=== PATIENT | female | born 1940 | race Caucasian/White ===

== ENCOUNTER → 2019-06-10 13:40 | Outpatient (BNVA) | payer MEDICARE, SELFPAY | PROVIDERS: Family Provider Nurse Practitioner; PCP Nurse Practitioner; Visit Provider Nurse Practitioner Family | DX: N39.0 Urinary tract infection, site not specified (principal) | CPT/HCPCS: 81001 ==

== ENCOUNTER → 2019-12-30 13:57 | Outpatient (BNVA) | payer MEDICARE, SELFPAY | PROVIDERS: Family Provider Nurse Practitioner; PCP Nurse Practitioner; Visit Provider Nurse Practitioner | DX: I10 Essential (primary) hypertension (principal) | CPT/HCPCS: 80053; 80061; 84443 ==

== ENCOUNTER → 2020-02-26 12:54 | Outpatient (BNVA) | payer MEDICARE, SELFPAY | PROVIDERS: Family Provider Nurse Practitioner; PCP Nurse Practitioner; Visit Provider Urology | DX: N30.20 Other chronic cystitis without hematuria (principal) | CPT/HCPCS: 81001 ==

== ENCOUNTER 2020-05-14 10:00 | Outpatient (CLI) | payer MEDICARE, SELFPAY ==
[2020-05-14 10:44] LABS: Basophils % 0.6 %; Eosinophils # 0.1 10^3/uL (0.0-0.8); Eosinophils % 1.7 %; Hematocrit 43.6 % (37.0-47.0); Hemoglobin 14.3 g/dL (11.5-15.3); Lymphocytes # 1.6 10^3/uL (0.8-4.8); Lymphocytes % 30.1 %; Mean Corpuscular HGB Conc 32.8 g/dL (30.0-36.0); Mean Corpuscular Hemoglobin 30.7 pg (28.0-34.0); Mean Corpuscular Volume 93.6 fL (81-99); Monocytes # 0.5 10^3/uL (0.2-0.9); Monocytes % 9.8 %; Neutrophils # 3.12 10^3/uL (1.8-7.7); Neutrophils % 57.6 %; Nucleated Red Blood Cells % 0 %; Platelet Count 222 10^3/cmm (130-400); Red Blood Count 4.66 10^6/uL (4.1-5.3); Red Cell Distribution Width 13.2 % (12.1-15.1); White Blood Count 5.4 10^3/uL (4.0-10.0)
[2020-05-14 10:53] LABS: Alanine Aminotransferase 19 U/L (0-33); Albumin Level 4.2 g/dL (3.5-5.2); Alkaline Phosphatase 106 IU/L (35-105); Aspartate Amino Transferase 23 U/L (0-32); Blood Urea Nitrogen 13 mg/dL (8-23); Calcium 9.5 mg/dL (8.5-10.5); Carbon Dioxide 25 mmol/L (22-29); Chloride 103 mmol/L (98-107); Globulin 2.6 g/dL (1.3-4.6); Glucose 95 mg/dL (65-115); Osmolality Calculated 286 mOsm/kg (285-295); Sodium 138 mmol/L (136-145); Total Bilirubin 0.5 mg/dL (0.15-1.2); Total Protein 6.8 g/dL (6.6-8.7)
--- NOTE | 2020-05-15 08:32 | ONC FU_ITS ---
Dr. Arvizu Patient Follow-Up Note Patient: Corrine Johnson Unit #: [id number]: [id number] Dicatated By: Juan Manuel Arvizu M.D.Date of Visit:May 14, 2020 Onc Med Follow-up/Prog Note Chief Complaint: Breast cancer. 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 She underwent right modified radical mastectomy in November of 2005. Pathology showed a grade 3 invasive adenocarcinoma estimated to be greater than 5 cm. There was infiltration into the dermal lymphatics and there was involvement in 22 of 31 axillary lymph nodes. She was given adjuvant chemotherapy with 6 cycles of TAC, which she completed in April of 2006. She was then given prophylactic chest wall radiation. She completed radiation in June 2006 to a total dose of 6000 cGy. She then continued on observation/expectant management. 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 Her other medical illnesses include hypertension and dyslipidemia. She has been followed by Dr. Babb for cardiac arrhythmia, and she is on anticoagulation with apixaban. She had evidence of osteoporosis on a bone density study, and she also has degenerative arthritis. She underwent right total knee arthroplasty in February 2017. She is a nonsmoker. She is seen for a follow-up visit. She has been feeling pretty good generally, though she does complain that she is tired. She has pretty good activity tolerance once she can get going. Her ECOG score is 1. She has good appetite. She does not have fever or night sweats. She has a little bit of hot flashes, but they do not last long. She has some shortness of breath, but her breathing is not bad as long she uses her inhaler in the morning. She does not complain of cough and she has not been having chest pain. She has no GI complaints. She currently is having symptoms of urinary tract infection, but she does have antibiotic available through Dr. Tang. She says her joints have been hurting more, especially her fingers and ankles. She has been having quite a few headaches, mainly in the morning. She has no focal neurologic symptoms. Medications: Acetaminophen 2 Tablet (of 500 mg) Oral PRN, All Day Allergy 10 mg (of 10 mg) Tablet Oral PRN, Cranberry 4,200 mg (of 4200 mg) Capsule Oral daily, Doxycycline Hyclate 100 mg (of 100 mg) Tablet Oral b.i.d. PRN, Eliquis 1 Tablet (of 5 mg) Oral b.i.d., Hydrocodone-Acetaminophen Tablet Oral PRN, Klor-Con 10 1 (10 meq) Tablet, controlled release Oral daily, Valsartan 1 Tablet Oral daily Allergies: Macrobid Review of Systems: Constitutional - She has been feeling pretty good generally. She still feels tired, but she has reasonably good activity tolerance when she gets going. Her appetite is good. She has not had fever or night sweats. She has just a little bit of hot flashes, which do not last long. ECOG score is 1, ENMT - She has quite a bit of sinus drainage. No mouth sores. No sore throat or difficulty swallowing, Hematologic/Lymphatic - She has easy bruising, Respiratory - She has some shortness of breath, and she does use her inhaler every morning. Her breathing, though, is not bad. No cough. No pleuritic pain or hemoptysis, Cardiovascular - No angina pain. No palpitations, Gastrointestinal - No nausea or vomiting. No heartburn or acid reflux. No diarrhea or constipation. No blood in the stool or black stools, Genitourinary (F) - She currently is having symptoms of urinary tract infection, but she does have antibiotic available through Dr. Tang, Musculoskeletal - She says her joints have been hurting more, especially her fingers and ankles, Integumentary - No skin rash, Neurologic - She has had quite a few headaches, mainly in the mornings. No dizziness. No numbness or tingling. No other focal neurologic symptoms, Psychiatric - No anxiety or depression. No insomnia. Vital Signs: Performed on May 14, 2020 12:55 Height - 67.00 in Weight - 179.0 lbs (HIGH) BSA - 1.93 sq.m BMI - 28.04 Temperature - 98.1 F (LOW) Pulse - 65 /min Respiration - 16 /min BP - 199/105 mm(hg) (HIGH) O2 Sat - 95 % (LOW) Pain - 0 Physical Examination: Constitutional - She looks pretty good generally, Eyes - Sclerae nonicteric. Conjunctivae clear, ENMT - No lesions noted in the oral cavity, Hematologic/Lymphatic - No cervical or clavicular adenopathy, Respiratory - Lungs are clear with good air movement bilaterally, Cardiovascular - Heart rhythm is regular. There is no murmur, gallop, or rub noted, Breasts - There are no lesions noted in the right chest wall. The left breast shows no mass. There is no axillary adenopathy, Abdomen - Soft. Liver and spleen are not enlarged. There is no abdominal mass or ascites noted and there is no inguinal adenopathy, Extremities - No edema, Neurologic - No focal neurologic deficits noted. Lab/Imaging: Test performed on May 14, 2020 10:20 Sodium 138 mmol/L Potassium 4.0 mmol/L Chloride 103 mmol/L CO2 25 mmol/L Anion Gap 14.0 BUN 13 mg/dL Creatinine 0.7 mg/dL Cr Clearance (Est) 86.27 mL/min Glucose 95 mg/dL Osmolality - Calculated 286 mOsm/kg Calcium 9.5 mg/dL Protein, Total 6.8 g/dL Albumin 4.2 g/dL Globulin 2.6 g/dL Bilirubin, Total 0.5 mg/dL ALT (SGPT) 19 U/L AST (SGOT) 23 U/L Alkaline Phosphatase 106 IU/L WBC 5.4 10 3/uL RBC 4.66 10 6/uL HGB 14.3 g/dL HCT 43.6 % MCV 93.6 fL MCH 30.7 pg MCHC 32.8 g/dL RDW 13.2 % Platelet Count 222 10 3/cmm MPV 10.0 fL Neutrophils 3.12 10 3/uL Lymphocytes 1.6 10 3/uL Monocytes 0.5 10 3/uL Eosinophils 0.1 10 3/uL Basophils 0.0 10 3/uL Neutrophil % 57.6 % Lymphocyte % 30.1 % Monocyte % 9.8 % Eosinophil % 1.7 % Basophils % 0.6 % NRBC % 0 % Impression: 1. 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 2. She underwent right modified radical mastectomy in November 2005. 3. She was given adjuvant chemotherapy with 6 cycles of TAC, completed in April 2006. 4. She was then given prophylactic chest wall radiation, completed in June 2006. She has since then remained on observation/expectant management. Her other medical illnesses include: 5. Hypertension. 6. Dyslipidemia. 7. Osteopenia. 8. Degenerative arthritis. She underwent successful right total knee arthroplasty in February 2017. She had a good recovery. During subsequent follow-up she had developed some cardiac arrhythmia, for which she has continued follow-up with Dr. Babb. She has remained on anticoagulation with apixaban. During follow-up she has had ongoing complaints of fatigue and she does have chronic pain, which appears to be due to a combination of degenerative joint disease and residual neuropathy. It has been managed adequately with hydrocodone/APAP, which she has used sparingly. Overall, her clinical status appears stable. Thus far there has been no evidence of recurrence of the breast cancer. Plan: She remains on observation/expectant management for the breast cancer. She will continue hydrocodone/APAP as needed for her chronic pain. She will be scheduled for her yearly diagnostic mammograms, which are due at the end of this month. She will be scheduled for a follow-up visit in 1 year. Signed By: Juan Manuel Arvizu M.D. <<Signature on File>>
== END 2020-05-14 10:01 | disposition home or self-care (01) ==
LOC: ONCMED 10:02
PROVIDERS: PCP Nurse Practitioner; Visit Provider Internal Medicine Medical Oncology
DX: Z08 Encounter for follow-up examination after completed treatment for malignant neoplasm (principal); Z85.3 Personal history of malignant neoplasm of breast; G89.29 Other chronic pain; M19.90 Unspecified osteoarthritis, unspecified site; G62.9 Polyneuropathy, unspecified; I49.9 Cardiac arrhythmia, unspecified; I10 Essential (primary) hypertension; M85.80 Other specified disorders of bone density and structure, unspecified site; Z79.891 Long term (current) use of opiate analgesic; Z79.01 Long term (current) use of anticoagulants; Z92.3 Personal history of irradiation; Z90.11 Acquired absence of right breast and nipple
CPT/HCPCS: 36415; 80053; 85025; 99214

== ENCOUNTER 2020-06-01 09:02 | Outpatient (CLI) | payer MEDICARE, SELFPAY ==
--- NOTE | 2020-06-01 09:07 | MM_ITS ---
WS: [id number] Exam: [id number] Date/Time of Exam: 06/01/2020 9:10 AM Reason For Exam: HX OF BREAST CA;RT MASTECTOMY VIEWS: MLO and CC views left breast only. Comparison made with prior exam of 05/04/2017. Findings: There was no sign of mass, architectural distortion or suspicious calcification . Scattered fibrogla ndular densities MM/[id number] Impression: BI-RADS: 2-Benign FOLLOW-UP: 1 Year Follow-up This mammogram was also analyzed by the Computer Aided Detection System [employer] [facility].
== END 2020-06-01 09:03 | disposition home or self-care (01) ==
LOC: ONCMED 09:04
PROVIDERS: PCP Nurse Practitioner; Visit Provider Internal Medicine Medical Oncology
DX: Z85.3 Personal history of malignant neoplasm of breast (principal)
CPT/HCPCS: 77065

== ENCOUNTER → 2020-12-28 10:23 | Outpatient (BNVA) | payer MEDICARE, SELFPAY | PROVIDERS: PCP Nurse Practitioner; Visit Provider Nurse Practitioner Family | DX: Z20.822 Contact with and (suspected) exposure to COVID-19 (principal) | CPT/HCPCS: 87635 ==

== ENCOUNTER 2021-06-08 10:52 | Outpatient (CLI) | payer MEDICARE, SELFPAY ==
[2021-06-08 11:41] LABS: Basophils % 0.6 %; Eosinophils # 0.3 10^3/uL (0.0-0.8); Eosinophils % 6.4 %; Hemoglobin 13.9 g/dL (11.5-15.3); Lymphocytes # 1.6 10^3/uL (0.8-4.8); Lymphocytes % 31.9 %; Mean Corpuscular HGB Conc 32.3 g/dL (30.0-36.0); Mean Corpuscular Hemoglobin 30.1 pg (28.0-34.0); Mean Corpuscular Volume 93.1 fl (81-99); Mean Platelet Volume 9.9 fL (7.4-10.4); Monocytes # 0.6 10^3/uL (0.2-0.9); Monocytes % 11.8 %; Neutrophils # 2.46 10^3/uL (1.8-7.7); Neutrophils % 48.9 %; Nucleated Red Blood Cells % 0 %; Platelet Count 226 10^3/cmm (130-400); Red Blood Count 4.62 10^6/uL (4.1-5.3); Red Cell Distribution Width 13.2 % (12.1-15.1)
--- NOTE | 2021-06-08 11:48 | MM_ITS ---
WS: [id number] DIAGNOSTIC LEFT DIGITAL MAMMOGRAM WITH CAD HISTORY: HX OF BREAST Ca; rt mastectomy COMPARISON: 05/24/2020, 05/31/2019 and 05/07/2018 Technique: CC, MLO and ML views. Breast composition: There are scattered areas of fibroglandular density. Extensive vascular calcific ations and scattered benign-appearing calcifications in the LEFT breast. Benign lymph nodes in the up per outer quadrant. No distortion. MM/[id number] IMPRESSION: BI-RADS: 2-Benign FOLLOW UP: 1 Year Follow-up
[2021-06-08 12:04] LABS: Alanine Aminotransferase 18 U/L (0-33); Albumin Level 4.2 g/dL (3.5-5.2); Alkaline Phosphatase 103 IU/L (35-105); Aspartate Amino Transferase 28 U/L (0-32); Blood Urea Nitrogen 12 mg/dL (8-23); Calcium 8.8 mg/dL (8.5-10.5); Carbon Dioxide 28 mmol/L (22-29); Chloride 103 mmol/L (98-107); Globulin 2.8 g/dL (1.3-4.6); Glucose 87 mg/dL (65-115); Osmolality Calculated 293 mOsm/kg (285-295); Sodium 142 mmol/L (136-145); Total Bilirubin 0.4 mg/dL (0.15-1.2)
--- NOTE | 2021-06-12 11:15 | ONC FU_ITS ---
Dr. Arvizu Patient Follow-Up Note Patient: Corrine Johnson Unit #: [id number]: [id number] Dicatated By: Juan Manuel Arvizu M.D.Date of Visit:Jun 08, 2021 Onc Med Follow-up/Prog Note Chief Complaint: Breast cancer. 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 She underwent right modified radical mastectomy in November of 2005. Pathology showed a grade 3 invasive adenocarcinoma estimated to be greater than 5 cm. There was infiltration into the dermal lymphatics and there was involvement in 22 of 31 axillary lymph nodes. She was given adjuvant chemotherapy with 6 cycles of TAC, which she completed in April of 2006. She was then given prophylactic chest wall radiation. She completed radiation in June 2006 to a total dose of 6000 cGy. She then continued on observation/expectant management. 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 Her other medical illnesses include hypertension and dyslipidemia. She has been followed by Dr. Babb for cardiac arrhythmia, and she is on anticoagulation with apixaban. She had evidence of osteoporosis on a bone density study, and she also has degenerative arthritis. She underwent right total knee arthroplasty in February 2017. She is a nonsmoker. She is seen for a follow-up visit. She has been feeling good generally, though she did have COVID-19 virus infection in December. Her energy is not too bad now. She has normal activity. ECOG score is 0. Her appetite is good. She has not recently had any fever. She still has hot flashes off and on. She still has some cough and she is sometimes short of breath. She does not complain of chest pain. She has no GI complaints other than occasional diarrhea. Bladder function had been really good, but she then required treatment for urinary tract infection following the COVID infection. She has some pain in her right hand and in both ankles. Lately she has had a lot of headaches. She occasionally has dizziness. She has no focal neurologic symptoms. Medications: Acetaminophen 2 Tablet (of 500 mg) Oral PRN, All Day Allergy 10 mg (of 10 mg) Tablet Oral PRN, Cranberry 4,200 mg (of 4200 mg) Capsule Oral daily, Doxycycline Hyclate 100 mg (of 100 mg) Tablet Oral b.i.d. PRN, Eliquis 1 Tablet (of 5 mg) Oral b.i.d., Hydrocodone-Acetaminophen Tablet Oral PRN, Klor-Con 10 1 (10 meq) Tablet, controlled release Oral daily, Valsartan 1 Tablet Oral daily Allergies: Macrobid Vital Signs: Performed on Jun 08, 2021 12:32 Height - 67.00 in Weight - 165 lbs (LOW) BSA - 1.86 sq.m BMI - 25.84 Temperature - 97.6 F (LOW) Pulse - 67 /min Respiration - 19 /min BP - 182/96 mm(hg) (HIGH) O2 Sat - 94 % (LOW) Pain - 0 Physical Examination: Constitutional - She looks pretty good generally, Eyes - Sclerae nonicteric. Conjunctivae clear, ENMT - No lesions noted in the oral cavity, Hematologic/Lymphatic - No cervical or clavicular adenopathy, Respiratory - Lungs are clear with good air movement bilaterally, Cardiovascular - Heart rhythm is regular. There is no murmur, gallop, or rub noted, Breasts - There are no lesions noted in the right chest wall. The left breast shows no mass. There is no axillary adenopathy, Abdomen - Soft. Liver and spleen are not enlarged. There is no abdominal mass or ascites noted and there is no inguinal adenopathy, Extremities - No edema. Pedal pulses are palpable bilaterally, Neurologic - No focal neurologic deficits noted. Lab/Imaging: Test performed on Jun 08, 2021 11:30 Sodium 142 mmol/L Potassium 4.0 mmol/L Chloride 103 mmol/L CO2 28 mmol/L Anion Gap 15.0 BUN 12 mg/dL Creatinine 0.7 mg/dL Cr Clearance (Est) 78.26 mL/min Glucose 87 mg/dL Osmolality - Calculated 293 mOsm/kg Calcium 8.8 mg/dL Protein, Total 7.0 g/dL Albumin 4.2 g/dL Globulin 2.8 g/dL Bilirubin, Total 0.4 mg/dL ALT (SGPT) 18 U/L AST (SGOT) 28 U/L Alkaline Phosphatase 103 IU/L WBC 5.0 10 3/uL RBC 4.62 10 6/uL HGB 13.9 g/dL HCT 43.0 % MCV 93.1 fl MCH 30.1 pg MCHC 32.3 g/dL RDW 13.2 % Platelet Count 226 10 3/cmm MPV 9.9 fL Neutrophils 2.46 10 3/uL Lymphocytes 1.6 10 3/uL Monocytes 0.6 10 3/uL Eosinophils 0.3 10 3/uL Basophils 0.0 10 3/uL Neutrophil % 48.9 % Lymphocyte % 31.9 % Monocyte % 11.8 % Eosinophil % 6.4 % Basophils % 0.6 % NRBC % 0 % Problem List: 1. Grade 3 infiltrating adenocarcinoma of the right breast, stage IIIC (T3, pN3, M0), ER/NV negative and HER-2/betsy negative. 2. Hypertension. 3. Dyslipidemia. 4. Osteopenia. 5. Degenerative arthritis. 6. Cardiac arrhythmia. Problems Addressed with this Encounter and Plan: 1. 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 She underwent right modified radical mastectomy in November 2005. She was given adjuvant chemotherapy with 6 cycles of TAC, completed in April 2006. She was then given prophylactic chest wall radiation, completed in June 2006. She was then followed on observation/expectant management. During follow-up she has had ongoing complaints of fatigue and she does have chronic pain, which appears to be due to a combination of degenerative joint disease and residual neuropathy. It has been managed adequately with hydrocodone/APAP, which she has used sparingly. Overall, her clinical status appears stable. Thus far there has been no evidence of recurrence of the breast cancer. She remains on expectant management for the breast cancer. She will continue hydrocodone/APAP as needed for her chronic pain. She will be scheduled for a follow-up visit in 1 year. 2. She has a cardiac arrhythmia for which she has been maintained on anticoagulation. She continues apixiban 5 mg bid. Signed By: Juan Manuel Arvizu M.D. <<Signature on File>>
== END 2021-06-08 10:53 | disposition home or self-care (01) ==
PROVIDERS: PCP Nurse Practitioner; Visit Provider Internal Medicine Medical Oncology
DX: Z85.3 Personal history of malignant neoplasm of breast (principal); I10 Essential (primary) hypertension; E78.5 Hyperlipidemia, unspecified; I49.9 Cardiac arrhythmia, unspecified; Z79.899 Other long term (current) drug therapy; Z79.01 Long term (current) use of anticoagulants; Z86.16 Personal history of COVID-19
CPT/HCPCS: 36415; 77065; 80053; 85025; 99214

== ENCOUNTER → 2021-08-25 10:48 | Outpatient (BNVA) | payer MEDICARE, SELFPAY | PROVIDERS: PCP Nurse Practitioner; Visit Provider Nurse Practitioner | DX: I10 Essential (primary) hypertension (principal); E55.9 Vitamin D deficiency, unspecified; I50.9 Heart failure, unspecified; N95.0 Postmenopausal bleeding; I48.91 Unspecified atrial fibrillation | CPT/HCPCS: 80053; 80061; 81000; 82306; 82607; 84443 ==

== ENCOUNTER 2021-09-06 07:54 | Outpatient (CLI) | payer MEDICARE, SELFPAY ==
--- NOTE | 2021-09-06 08:30 | US_ITS ---
WS: [id number] ULTRASOUND PELVIS TECHNIQUE: Transabdominal and transvaginal. ULTRASOUND PELVIS TECHNIQUE: Transabdominal. CLINICAL INFORMATION: N95.0 - Postmenopausal bleeding LMP: Menopause : No. COMPARISON: None. FINDINGS: Uterus Orientation: Anteverted. Size: 5.1 cm x 2.7 cm x 1.7 cm. Masses: None. Cervix: Mild Thickening Endometrium: Thickened and heterogeneous Endometrium thickness: 6.5 mm. Adnexa: Neither ovary is visualized due to small bowel. Free fluid: None. Other findings: None. US/US pelvic with transvaginal IMPRESSION: 1. Thickened heterogeneous endometrium measuring 6.5 mm abnormal in a postmeno pausal patient with hypoechoic cystic change. Recommend further evaluation with hysteroscopy to assess for neoplasia/hyperplasia. 2. Neither ovary is visualized due to small bowel. 3. No free fluid in the cul-de-sac.
== END 2021-09-06 07:55 | disposition home or self-care (01) ==
LOC: RAD 07:56
PROVIDERS: PCP Nurse Practitioner; Visit Provider Nurse Practitioner
DX: N95.0 Postmenopausal bleeding (principal); R93.89 Abnormal findings on diagnostic imaging of other specified body structures
CPT/HCPCS: 76830; 76856

== ENCOUNTER 2021-10-26 06:48 | Day surgery (SDC) | payer MEDICARE, SELFPAY ==
[2021-10-25 13:47] VITALS: BMI 24.7
[2021-10-26 07:16] VITALS: BP 154/93; PULSE 73; RESP 18; TEMP 36.1; O2SAT 93
[2021-10-26] MEDS: sodium chloride 0.9% 1,000 ML 30 ML IV (07:32)
[2021-10-26] MEDS: ketorolac 30 mg/mL INJ IVP (07:38)
--- NOTE | 2021-10-26 07:42 | ANES.PREANE2 ---
Pre-Anesthetic Assessment Height/Weight: Height 1.7 m Weight 71.668 kg Temp Pulse Resp BP Pulse Ox 97 F L 73 18 154/93 93 10/26/21 07:16 10/26/21 07:16 10/26/21 07:16 10/26/21 07:16 10/26/21 07:16 Preop Diagnosis: pmb Operation Date: 10/26/21 08:10 Proposed Procedures p Hysteroscopy dilation and curettage w/ Myosure 21345/[id number]/70009/n95.0(Not Applicable) - Promise Ware MD s Dilation And Curettage (D&C)(Not Applicable) - Promise Ware MD Familial anesthetic complications: None Was Beta Simran taken within 24 hours: Yes Was Clonidine taken within 24 hours: N/A Last intake: Intake Last Liquid Date 10/25/21 Last Liquid Time 19:00 Last Solid Date 10/25/21 Last Solid Time 19:00 Social No alcohol and No tobacco Exam alert, oriented x 3, clear to auscultation bilaterally and regular rate & rhythm Airway Mallampati: Class II Dentition: false Pulmonary None reported CV/HEM Atrial Fibrillation, Congestive Heart Failure (EF 40%), Deep Vein Thrombosis and Hypertension Mod pulm HTN, mod to severe MR Patient denies recent chest pains or SOB None reported Hepatic None reported GI None reported Metabolic None reported Musc/skel None reported Neuropsych None reported Anesthetic Plan ASA status: 3 Anesthesia: General Risk of > 500 ml blood loss (7ml/kg in children): No Medications/Allergies Home Medications Medication Instructions Recorded Confirmed Last Taken Type Lactobacills gasseri-Bifidobac 1 cap PO DAILY 06/10/19 10/26/21 10/25/21 History bifidum,longum 1.5 billion cell capsule (Compositence) cetirizine 10 mg capsule (All Day 10 mg PO DAILY 06/10/19 10/26/21 10/24/21 History Allergy (cetirizine)) cranberry jjez-N-yuzmtldi coag 250 1 tab PO DAILY 06/10/19 10/26/21 Unknown History mg-30 mg-50 million cell tablet (Azo Cranberry Plus Probiotic) vitamin B complex (B 1 tab PO ONCE 06/10/19 10/26/21 10/25/21 History Complex-Vitamin B12) albuterol sulfate 90 mcg/actuation 2 puff INHALATION Q6H PRN 10/01/19 10/26/21 10/12/21 History aerosol inhaler (ProAir HFA) aspirin 325 mg tablet 325 mg PO DAILY PRN 10/01/19 10/26/21 10/20/21 History magnesium 200 mg tablet 200 mg PO DAILY tab 10/01/19 10/26/21 10/25/21 History metoprolol succinate 25 mg 25 mg PO DAILY #30 tab 08/25/21 10/26/21 10/25/21 Rx tablet,extended release 24 hr potassium chloride 10 mEq 10 meq PO DAILY #30 cap 08/25/21 10/26/21 10/25/21 Rx capsule,extended release cholecalciferol (vitamin D3) 125 125 mcg PO DAILY #30 cap 09/07/21 10/26/21 10/24/21 Rx mcg (5,000 unit) capsule amlodipine 2.5 mg tablet (Norvasc) 2.5 mg PO DAILY #30 tab 09/21/21 10/26/21 10/26/21 06:00 Rx spironolactone 25 mg tablet 25 mg PO DAILY #30 tab 09/21/21 10/26/21 10/25/21 Rx apixaban 5 mg tablet (Eliquis) 5 mg PO BID #60 tab 09/30/21 10/26/21 10/25/21 Rx valsartan 320 mg tablet 320 mg PO DAILY #30 tab 09/30/21 10/26/21 10/25/21 Rx doxycycline hyclate 50 mg capsule 50 mg PO DAILY 10/20/21 10/26/21 10/25/21 History misoprostol 200 mcg tablet 600 mcg PO Q6H #12 tab 10/20/21 10/26/21 10/25/21 Rx (Cytotec) Allergies Allergy/AdvReac Type Severity Reaction Status Date / Time nitrofurantoin Allergy hives Verified 10/26/21 07:08 [From Macrobid] Current Medications Generic Name Dose Route Start Last Admin Trade Name Freq PRN Reason Stop Dose Admin Sodium Chloride 1,000 mls @ 30 mls/hr 10/26/21 07:15 10/26/21 07:32 Sodium Chloride 0.9% IV 10/27/21 07:14 30 mls/hr .Q24H RASHAD Administration PFSH Anesthesia Medical History Atrial fibrillation BMI 28.0-28.9,adult CHF (congestive heart failure) Chronic cystitis History of breast cancer History of DVT (deep vein thrombosis) HTN (hypertension) IBS (irritable bowel syndrome) Recurrent UTI Surgical History S/P cataract extraction S/P knee replacement Bilateral S/P lumpectomy of breast S/P mastectomy Right S/P rotator cuff repair Bilateral Family History Father , 62 Cancer CAD (coronary artery disease) Hypertension Mother , 86 CAD (coronary artery disease) Stroke Hypertension Heart disease Sister Cancer Heart disease Brother Heart disease Denies family history of Colon cancer Ovarian cancer Diabetes Hyperlipidemia Breast cancer Bleeding disorder Uterine cancer Thyroid disease Social History Smoking and tobacco status: never smoked Second hand smoke exposure: No Smoking risk assessment/counseling performed?: No Alcohol intake: never Desire information about alcohol rehabilitation?: No Counseling given: No Desire information about substance/drug rehabilitation?: No Counseling given: No Adopted: No Caregiver/support person: No Lives independently: No Household members: spouse Housing: House Marital status: service: No Current occupational status: retired History of recent travel: No Current gender identity: Female Data Anesthesia Cardiac Studies: No Data to Display
--- NOTE | 2021-10-26 08:18 | W.PM.OPSUD ---
Surgery/Procedure H&P Update DATE OF PROCEDURE: October 26, 2021 DATE H&P PERFORMED: 10/20/21 H&P UPDATE INFORMATION: I have reviewed H&P completed within last 30 days, I have examined patient prior to procedure and No changes to prior documentation PREOP DIAGNOSIS: pmb PLANNED PROCEDURE: Operation Date: 10/26/21 08:10 Proposed Procedures p Hysteroscopy dilation and curettage w/ Myosure [id number]/37784/n95.0(Not Applicable) - Promise Ware MD s Dilation And Curettage (D&C)(Not Applicable) - Promise Ware MD Related Problem List Diagnoses (1) Postmenopausal bleeding:
--- NOTE | 2021-10-26 09:12 | PM.OP ---
Operative Report Date of procedure: October 26, 2021 Pre-op diagnosis: Preop Diagnosis pmb Post-op diagnosis: same Post-op findings: 6 week sized uterus, endometrial polyp Procedure done: hysteroscopy, dilation and curettage with myosure Specimens removed/disposition: endometrial curettings and endometrial polyp to pathology Surgeon: Promise Ware Anesthesia: General Estimated blood loss (mL): 2 IV fluids (mL): 600 Complications: none Findings: 6 week sized uterus with one endometrial polyp Condition: stable Disposition: PACU Procedure: The patient was taken to the operating room where monitored anesthesia was administered and to be adequate. She was prepped and draped in the normal sterile fashion in the dorsal lithotomy position in [facility]. A weighted speculum was placed into the vagina and the anterior lip of the cervix grasped with a single-tooth tenaculum. The uterus was sounded to 6 cm. The cervix was dilated to 16 [place]. The hysteroscope was advanced into the endometrial cavity. There was an endometrial polyp visualized. The MyoSure device was activated and the tissue was removed. Pictures were taken pre and post procedure. All instruments were removed. The patient tolerated the procedure well. Sponge lap and needle counts were correct x3. She was taken to the recovery room in stable condition.
[2021-10-26 09:17] VITALS: BP 138/98; PULSE 75; RESP 17; TEMP 37.2; O2SAT 95
--- NOTE | 2021-10-26 09:20 | P.DS_ITS ---
Discharge Providers Date of Admission: 10/26/21 Date of Discharge: October 26, 2021 Attending Provider at Admission: promise Ware md Attending Provider at Discharge: Promise Ware MD Primary Care Provider: TANGELA Marcus Diagnoses at Discharge Discharge Diagnosis (1) Postmenopausal bleeding: Status: Acute Hospital Course Hospital Course The patient was admitted for surgery. She did well postoperatively and was ready for discharge. Discharge Data Studies Completed and Pending Pending at discharge Category Date Time Status ES surgery / GI images Routine Exams 10/26/21 08:18 Taken Pathology: Surgical [PTH] Routine Pth 10/26/21 09:11 Ordered Vitals Last Vital Signs Temp 99.0 F 10/26/21 09:17 Pulse 75 10/26/21 09:17 Resp 17 10/26/21 09:17 BP 138/98 10/26/21 09:17 Pulse Ox 95 10/26/21 09:17 Discharge Plan Discharge Patient Disposition: Home Condition: Stable Prescriptions: Continued Azo Cranberry Plus Probiotic 250-30-50 [id number]-[id number] tablet 1 tab PO DAILY 0RF vitamin B complex [B Complex-Vitamin B12] Tablet 1 tab PO ONCE 0RF 24/7 Card 1.5 billion cell capsule 1 cap PO DAILY 0RF All Day Allergy (cetirizine) 10 mg capsule 10 mg PO DAILY 0RF magnesium 200 mg tablet 200 mg PO DAILY 0RF aspirin 325 mg tablet 325 mg PO DAILY PRN (Reason: pain) 0RF albuterol sulfate [ProAir HFA] 90 mcg/actuation HFA aerosol inhaler 2 puff INHALATION Q6H PRN (Reason: Allergic Reaction) 0RF metoprolol succinate 25 mg tablet extended release 24 hr 25 mg PO DAILY Qty: 30 5RF potassium chloride 10 mEq capsule, extended release 10 meq PO DAILY Qty: 30 5RF doxycycline hyclate 50 mg capsule 50 mg PO DAILY 0RF misoprostol [Cytotec] 200 mcg tablet 600 mcg PO Q6H Qty: 12 0RF Rx Instructions: start first three pills at noon on 10/25 and take every 6 hours. Last three pills at 6 am 10/26 cholecalciferol (vitamin D3) 125 mcg (5,000 unit) capsule 125 mcg PO DAILY Qty: 30 2RF Rx Instructions: dose increase amlodipine [Norvasc] 2.5 mg tablet 2.5 mg PO DAILY Qty: 30 5RF spironolactone 25 mg tablet 25 mg PO DAILY Qty: 30 5RF Eliquis 5 mg tablet 5 mg PO BID Qty: 60 5RF valsartan 320 mg tablet 320 mg PO DAILY Qty: 30 5RF Discharge Orders: Discharge Order (Routine); Ordered 10/26/21 Ordered By: Promise Ware Discharge Attestations Time Spent in Discharge Care*: less than 30 min Quality Metrics Clinical Quality Measures [ No reported AMI, CVA or VTE this stay] Coding Level of Care Code Acute Chg FW DC note Diagnoses Postmenopausal bleeding N95.0
[2021-10-26 09:22] VITALS: BP 139/78; PULSE 73; RESP 16; O2SAT 95
--- NOTE | 2021-10-26 09:23 | P.PCN_ITS ---
PACU note Narrative: VSS, Good respiratory effort, report to SPECIAL ORDER JEWELER Exam: awake
--- NOTE | 2021-10-26 09:23 | PM.PACU ---
PACU note Narrative: VSS, Good respiratory effort, report to TOOL GRINDER Exam: awake
[2021-10-26 09:26] VITALS: BP 137/77; PULSE 73; RESP 16; TEMP 36.8; O2SAT 96
[2021-10-26 09:30] VITALS: BP 141/68; PULSE 72; RESP 16; TEMP 36.5; O2SAT 94
[2021-10-26 09:41] VITALS: BP 136/62; PULSE 64; RESP 18; TEMP 36.6; O2SAT 95
--- NOTE | 2021-10-26 13:47 | ANE.PACU2 ---
Inpatient post-anesthesia follow up: Airway intact: Yes Vital signs: Temperature 97.8 F Pulse Rate 64 Respiratory Rate 18 Blood Pressure 136/62 Pulse Oximetry 95 Oxygen Delivery Me thod Room Air Oxygen Flow Rate Fraction of Inspir ed Oxygen Hydration adequate: Yes Nausea and vomiting: No Pain level: 1 Mental status: Baseline
== END 2021-10-26 10:13 | disposition home or self-care (01) ==
PROVIDERS: PCP Nurse Practitioner; Visit Provider Obstetrics & Gynecology
PROC: 0UDB8ZZ Extraction of Endometrium, Via Natural or Artificial Opening Endoscopic (ICD-10-PCS; CPT 58558; principal; 2021-10-26 08:00)
PROC: (CPT 58120; 2021-10-26 08:00)
DX: N95.0 Postmenopausal bleeding (principal); N84.0 Polyp of corpus uteri; I48.91 Unspecified atrial fibrillation; I11.0 Hypertensive heart disease with heart failure; I50.9 Heart failure, unspecified; Z86.718 Personal history of other venous thrombosis and embolism; Z85.3 Personal history of malignant neoplasm of breast
CPT/HCPCS: 58558; 88305; J0330; J0690; J1100; J1885; J2405; J2704; J3010; J3490; J7030

== ENCOUNTER → 2022-01-17 10:49 | Outpatient (BNVA) | payer BC, SELFPAY | PROVIDERS: PCP Nurse Practitioner; Visit Provider Nurse Practitioner Family | DX: N39.0 Urinary tract infection, site not specified (principal) | CPT/HCPCS: 81003 ==

== ENCOUNTER → 2022-03-07 09:51 | Outpatient (BNVA) | payer BC, SELFPAY | PROVIDERS: PCP Nurse Practitioner; Visit Provider Nurse Practitioner | DX: I10 Essential (primary) hypertension (principal) | CPT/HCPCS: 80053; 80061; 82306; 82607; 84443; 85025 ==

== ENCOUNTER → 2022-03-09 15:03 | Outpatient (BNVA) | payer BC, SELFPAY | PROVIDERS: PCP Nurse Practitioner; Visit Provider Nurse Practitioner | DX: I10 Essential (primary) hypertension (principal) | CPT/HCPCS: 71046 ==

== ENCOUNTER 2022-06-09 10:32 | Outpatient (CLI) | payer MEDICARE, SELFPAY ==
--- NOTE | 2022-06-09 11:14 | MM_ITS ---
WS: [id number] Left breast diagnostic 3D tomosynthesis digital mammogram, 06/09/2022 Clinical Data: history of breast cancer; RT MST Comparison: 06/08/2021, 06/01/2020, 05/31/2019, 05/07/2018, 05/04/2017, 05/02/2016, 04/28/2015, 04/23/20 14, 04/22/2013, 02/23/2012, 02/15/2011, 02/09/2010, 02/06/2009, 02/05/2008, 01/31/2007. Findings: The left breast shows heterogeneous density. There are scattered benign calcifications throughout the left breast. There are lymph nodes in the left axilla. There are benign calcifications in in the wal ls of the vessels. No spiculated masses or clustered calcifications are seen. There are no secondary signs of carcinoma. MM/[place] [id number] Impression: 1. Negative left breast mammogram unchanged. 2. Recommend annual left breast mammogram. BIRADS: 2-Benign FOLLOW UP: 1 Year Follow-up The CAD food checker was used.
[2022-06-09 12:12] LABS: Basophils # 0.1 10^3/uL (0.0-0.1); Basophils % 0.9 %; Eosinophils # 0.2 10^3/uL (0.0-0.8); Eosinophils % 3.3 %; Hematocrit 41.5 % (37.0-47.0); Hemoglobin 13.3 g/dL (11.5-15.3); Lymphocytes # 2.4 10^3/uL (0.8-4.8); Lymphocytes % 34.6 %; Mean Corpuscular Hemoglobin 31.1 pg (28.0-34.0); Mean Platelet Volume 9.4 fL (7.4-10.4); Monocytes # 0.7 10^3/uL (0.2-0.9); Monocytes % 10.3 %; Neutrophils # 3.54 10^3/uL (1.8-7.7); Neutrophils % 50.6 %; Nucleated Red Blood Cells % 0 %; Platelet Count 230 10^3/cmm (130-400); Red Blood Count 4.28 10^6/uL (4.1-5.3); Red Cell Distribution Width 13.4 % (12.1-15.1)
[2022-06-09 12:54] LABS: Alanine Aminotransferase 17 U/L (0-33); Albumin Level 4.3 g/dL (3.5-5.2); Alkaline Phosphatase 96 U/L (35-105); Anion Gap 14.7 (5-19); Aspartate Amino Transferase 24 U/L (0-32); Blood Urea Nitrogen 16 mg/dL (8-23); Calcium 9.6 mg/dL (8.5-10.5); Carbon Dioxide 28 mmol/L (22-29); Chloride 103 mmol/L (98-107); Globulin 2.9 g/dL (1.3-4.6); Glucose 93 mg/dL (65-115); Osmolality Calculated 293 mOsm/kg (285-295); Potassium 4.7 mmol/L (3.5-5.1); Sodium 141 mmol/L (136-145); Total Bilirubin 0.4 mg/dL (0.15-1.2); Total Protein 7.2 g/dL (6.6-8.7)
== END 2022-06-09 10:33 | disposition home or self-care (01) ==
PROVIDERS: PCP Nurse Practitioner; Visit Provider Internal Medicine Medical Oncology
DX: Z85.3 Personal history of malignant neoplasm of breast (principal)
CPT/HCPCS: 36415; 77061; 80053; 85025; G0279

== ENCOUNTER 2022-06-16 12:06 | Oncology outpatient (recurring) (ONCR) | payer MEDICARE, SELFPAY | END 2022-07-05 23:59 | disposition home or self-care (01) | PROVIDERS: PCP Nurse Practitioner; Visit Provider Internal Medicine Medical Oncology | DX: Z08 Encounter for follow-up examination after completed treatment for malignant neoplasm (principal); Z85.3 Personal history of malignant neoplasm of breast; Z90.11 Acquired absence of right breast and nipple; Z92.21 Personal history of antineoplastic chemotherapy; Z92.3 Personal history of irradiation; D70.1 Agranulocytosis secondary to cancer chemotherapy; T45.1X5A Adverse effect of antineoplastic and immunosuppressive drugs, initial encounter; M19.90 Unspecified osteoarthritis, unspecified site; Z79.891 Long term (current) use of opiate analgesic; R53.83 Other fatigue | CPT/HCPCS: 99213 ==

== ENCOUNTER 2022-08-05 07:03 | Outpatient (CLI) | payer MEDICARE, SELFPAY ==
--- NOTE | 2022-08-05 | ECG_ITS ---
[facility] Test Date: 2022-08-05 Pat Name: Corrine Johnson Department: Room: Gender: Female Information Systems Supervisor: : 1940 Requested By: Jason Treviño Order Number: [id number] Tony MD: Jason Treviño M.D. Interpretive Statements NAME OF STUDY: LEXISCAN SESTAMIBI STRESS TEST INDICATION: [Chest Pain, ] Procedure: At the baseline, the blood pressure was 150/94 mmHg with a heart rate of 62 bpm. The electrocardiogram showed normal sinus rhythm, left axis deviation with normal ST and T's. The Lexiscan was infused over a period of 20 seconds. A total of 0.4 mg of Lexiscan was infused. The stress phase was continued for a total of 5 minutes. Heart rate was at the end of stress phase was 82 bpm and a blood pressure of 164/99 mmHg. The EKG at the peak infusion revealed normal sinus rhythm with no significant ST-T wave changes. Sestamibi was injected 20 seconds after the Lexiscan infusion. Blood pressure at the end of recovery phase was 162/93 mmHg with a heart rate of 72 bpm. Conclusion: 1. Normal EKG response to Lexiscan infusion 2. No Lexiscan induced chest pain or cardiac arrhythmia. 3. Normal blood pressure and heart rate response. 4. Sestamibi/sestamibi perfusion scan pending; see separate report. Electronically Signed On 08-06-2022 18:48:09 BLENDER CONVEYOR OPERATOR by Jason Treviño M.D. [email or web address]
[2022-08-05 07:22] VITALS: BMI 24.3
--- NOTE | 2022-08-05 07:23 | NMCV_ITS ---
NM maxwell perf SPECT r/s* [id number] Corrine Johnson Age: 81 Gender: F : 1940 Exam Date: 08/05/2022 08:31 Ordering Phys: Jason Treviño M.D ([email or web address]) Technologist: ANGELITO Heaton Exam Location: [facility] Indications: CHEST PAIN STRESS TEST Please see separate stress test report in [facility] for full findings IMAGE PROTOCOL Rest/Stress 1 Lexiscan Day Radiopharmaceutical Dose (mCi) Administration Site Administered by Rest: Tc-99m 10.8 IV ANGELITO Randall Sestamibi Stress:Tc-99m 32.6 IV ANGELITO Randall Sestamibi Rest: 05-Aug-2022 60 Discovery 630 Stress: 05-Aug-2022 30 Discovery 630 0.4mg Lexiscan. Images obtained in supine and prone position. SPECT RESULTS Technical Quality: Excellent Raw Data Analysis: Normal Image Corrections: No attenuation or motion correction applied Summed Stress Score: 16 Summed Rest Score: 17 Summed Difference Score: 1 PERFUSION FINDINGS There is large sized area of reduced radiotracer uptake in apical, inferior and inferolateral brasher which improves on stress. This is consistent with large sized prior infarct vs attenuation artifact in LAD, RCA and Left circumflex artery territories. No evidence of ischemia is seen. FUNCTIONAL RESULTS (calculated via Gated SPECT) Stress Image LV EF (%): 57 Stress EDV (mL):129 TID: 1.02 Stress ESV (mL):55 FUNCTIONAL FINDINGS: There is normal left ventricular systolic function. IMPRESSIONS 1. Likely attenuation artifact noted in multivessel distribution. No evidence of ischemia. 2. LV systolic function is normal. Jason Treviño MD (Electronically Signed) Final Date: 07 August 2022 13:35 S
[2022-08-05 09:47] VITALS: BP 162/93; PULSE 81
[2022-08-05] MEDS: regadenoson 0.4 Mg/5 ml Syringe IVP (09:48)
== END 2022-08-05 07:04 | disposition home or self-care (01) ==
PROVIDERS: PCP Nurse Practitioner; Visit Provider Internal Medicine
DX: R07.9 Chest pain, unspecified (principal)
CPT/HCPCS: 36415; 78452; 93017; 96374; A9500; J2785

== ENCOUNTER 2022-08-22 14:48 | Outpatient (CLI) | payer MEDICARE, SELFPAY ==
--- NOTE | 2022-08-22 15:00 | USCV_ITS ---
Corrine Johnson Age: 81 Gender: F : 1940 Exam Date: 08/22/2022 15:28 Ordering Phys: Jason Treviño MD Technologist: Evangelista Nguyen [place] [facility] [place]ication: Severe MR BP: 160 / 95 HR: 71 Rhythm: Sinus Technical Quality: Adequate MEASUREMENTS (Male / Female) Normal Values 2D ECHO LV Diastolic Diameter PLAX 5.3 cm 4.2 - 5.9 / 3.9 - 5.3 cm LV Systolic Diameter PLAX 4.2 cm IVS Diastolic Thickness 1.2 cm 0.6 - 1.0 / 0.6 - 0.9 cm IVS Systolic Thickness 1.2 cm LVPW Diastolic Thickness 1.2 cm 0.6 - 1.0 / 0.6 - 0.9 cm LVPW Systolic Thickness 1.4 cm LVOT Diameter 2.0 cm LV Ejection Fraction 2D Teich 42.5 % LV Ejection Fraction MOD 2C 50.1 % LV Ejection Fraction 2C AL 48.1 % LA Diameter 4.4 cm LA Width 4.5 cm LA Height 4.8 cm RA Width 2.5 cm RA Height 4.1 cm Aorta at Sinotubular Diameter 2.8 cm IVC Diameter 1.3 cm M-MODE Aortic Annulus Diameter 2.9 cm LA Ao Ratio MM 1.5 MV E Point Septal Separation 0.7 cm DOPPLER AV Peak Velocity 128.8 cm/s LVOT Peak Velocity 93.0 cm/s AV Area Cont Eq vti 2.2 cm squared AV Area Cont Eq pk 2.3 cm squared MV Peak Velocity 104.0 cm/s MV Area PHT 6.5 cm squared Mitral E to A Ratio 1.1 MV E' Velocity 48.5 cm/s Mitral E to MV E' Ratio 17.6 Mitral E to LV E' Lateral Ratio 19.9 Mitral E to LV E' Septal Ratio 16.1 TR Peak Velocity 257.0 cm/s TR Peak Gradient 26.4 mmHg TR Mean Velocity 202.5 cm/s TR Mean Gradient 18.9 mmHg TR Velocity Time Integral 73.5 cm Right Atrial Pressure 3.0 mmHg Pulmonary Artery Systolic Pressu 29.4 mmHg PV Peak Velocity 68.3 cm/s RV Acceleration Time 0.1 s RV Ejection Time 0.3 s RV AcT/ET 0.4 FINDINGS Left Ventricle Left ventricle is normal size. LV systolic function is borderline normal with EF of 50 to 55%. No significant regional wall motion abnormalities. Right Ventricle Normal in size and function Right Atrium Normal in size Left Atrium Dilated. Mitral Valve Moderate mitral annular calcification. Moderate mitral regurgitation. Aortic Valve Aortic valve is thickened. No significant stenosis or regurgitation. Tricuspid Valve Mild tricuspid regurgitation. Pulmonary artery systolic pressure is normal. Pulmonic Valve Mild pulmonic regurgitation. Pericardium Normal Aorta Normal in size IVC Appears to be normal CONCLUSIONS LV systolic function is borderline normal with EF 50 to 55%. Left atrial dilation Moderate mitral annular calcification. Moderate mitral regurgitation Mild tricuspid regurgitation Mild pulmonic regurgitation Compared to prior echo from 09/23/2017, LV systolic function has improved and is 50-55%. Jason Treviño MD (Electronically Signed) Final Date: 28 August 2022 13:50 S
== END 2022-08-22 14:49 | disposition home or self-care (01) ==
LOC: RAD 14:55
PROVIDERS: PCP Nurse Practitioner; Visit Provider Internal Medicine
DX: I08.1 Rheumatic disorders of both mitral and tricuspid valves
CPT/HCPCS: 93306

== ENCOUNTER → 2022-12-28 07:43 | Outpatient (BNVA) | payer MEDICARE, SELFPAY | PROVIDERS: PCP Nurse Practitioner; Referring Provider Nurse Practitioner; Visit Provider Nurse Practitioner Family | DX: L82.0 Inflamed seborrheic keratosis (principal); L57.0 Actinic keratosis; L57.8 Other skin changes due to chronic exposure to nonionizing radiation; D69.2 Other nonthrombocytopenic purpura; L81.4 Other melanin hyperpigmentation; D22.5 Melanocytic nevi of trunk; L85.3 Xerosis cutis; Z85.828 Personal history of other malignant neoplasm of skin | CPT/HCPCS: 11102; 17000; 99203 ==

== ENCOUNTER → 2023-02-07 15:31 | Outpatient (BNVA) | payer MEDICARE, SELFPAY | PROVIDERS: PCP Nurse Practitioner; Visit Provider Nurse Practitioner | DX: I10 Essential (primary) hypertension (principal) | CPT/HCPCS: 80053; 80061; 84443; 85025 ==

== ENCOUNTER → 2023-07-31 12:16 | Outpatient (BNVA) | payer MEDICARE, SELFPAY | PROVIDERS: PCP Nurse Practitioner; Visit Provider Nurse Practitioner | DX: I48.91 Unspecified atrial fibrillation (principal); I10 Essential (primary) hypertension | CPT/HCPCS: 80053; 80061; 84443; 85025 ==

== ENCOUNTER → 2023-08-16 08:23 | Outpatient (BNVA) | payer MEDICARE, SELFPAY | PROVIDERS: PCP Nurse Practitioner; Visit Provider Nurse Practitioner | DX: E87.6 Hypokalemia (principal) | CPT/HCPCS: 80048 ==

== ENCOUNTER 2023-08-17 12:05 | Outpatient (CLI) | payer MEDICARE, SELFPAY ==
[2023-08-17] MEDS: iohexol 350 mg/mL 500 mL Btl (per mL) PO (12:28)
--- NOTE | 2023-08-17 12:30 | CTR_ITS ---
PROCEDURE INFORMATION: Exam: CT Chest With Contrast; Diagnostic Exam date and time: 08/17/2023 12:38 PM Age: 82 years old Clinical indication: Condition or disease; Cancer and other: Breast cancer; Other: Essential (primary) hypertension; Prior surgery; Surgery date: 6+ months; Surgery type: RT mastectomy; Additional info: I10 - essential (primary) hypertension TECHNIQUE: Imaging protocol: Diagnostic computed tomography of the chest with contrast. Radiation optimization: All CT scans at this facility use at least one of these dose optimization techniques: automated exposure control; mA and/or kV adjustment per patient size (includes targeted exams where dose is matched to clinical indication); or iterative reconstruction. Contrast material: OMNI 350; Contrast volume: 100 ml; Contrast route: INTRAVENOUS (IV); COMPARISON: CR XR chest 2V* [id number] 03/09/2022 3:19 PM RADIATION DOSE METRICS: Total DLP (mGy-cm): 495.24 FINDINGS: Thyroid: Grossly unremarkable. Lungs: There is subsegmental atelectasis and scarring/postradiation change of the right upper lobe. No evidence of pneumonia. No focal consolidation. Pleural spaces: No pleural effusion. No pneumothorax. Heart: Mild cardiomegaly. No pericardial effusion. Mediastinal space: Trachea and central airways are grossly patent. No evidence of mediastinal mass or hematoma. Lymph nodes: There is a single enlarged 13 mm right paratracheal node (image 22 of series 3). Otherwise no evidence of mediastinal adenopathy. Vasculature: No aneurysmal dilatation of the thoracic aorta. No evidence of dissection. Though this study is not tailored to evaluate for pulmonary thromboembolism, there is no evidence of PE within limitations of respiratory motion. Bones/joints: No evidence of acute fracture or aggressive osseous lesion. Soft tissues: No fluid collection or hematoma in the superficial soft tissues. Postsurgical changes compatible with prior right-sided mastectomy. Other findings: No evidence of acute abnormality in the upper abdomen. PROCEDURE INFORMATION: Exam: CT Abdomen With Contrast Exam date and time: 08/17/2023 12:38 PM Age: 82 years old Clinical indication: Condition or disease; Cancer and other: Breast cancer; Other: Essential (primary) hypertension; Prior surgery; Surgery date: 6+ months; Surgery type: RT mastectomy; Additional info: I10 - essential (primary) hypertension TECHNIQUE: Imaging protocol: Computed tomography of the abdomen with contrast. Radiation optimization: All CT scans at this facility use at least one of these dose optimization techniques: automated exposure control; mA and/or kV adjustment per patient size (includes targeted exams where dose is matched to clinical indication); or iterative reconstruction. Contrast material: OMNI 350; Contrast volume: 100 ml; Contrast route: INTRAVENOUS (IV); COMPARISON: CR XR chest 2V* [id number] 03/09/2022 3:19 PM RADIATION DOSE METRICS: Total DLP (mGy-cm): 495.24 FINDINGS: Liver: Hepatic steatosis. No evidence of focal hepatic lesion. Left hepatic lobe cyst noted. Gallbladder and bile ducts: Unremarkable. No calcified stones. No ductal dilation. Pancreas: Mildly atrophic. Otherwise grossly unremarkable. Spleen: Multiple splenic calcifications compatible with sequela of a remote granulomatous process. Otherwise grossly unremarkable. Adrenal glands: Unremarkable. Kidneys and ureters: There are simple appearing peripelvic renal cysts for which dedicated imaging follow-up is not required. Otherwise no evidence of renal parenchymal abnormality. No hydronephrosis or ureteral stone. Stomach and bowel: No evidence of bowel obstruction or perienteric inflammatory changes. Intraperitoneal space: Unremarkable. No free air. No significant fluid collection. Vasculature: Mild atherosclerosis without aneurysmal dilatation or dissection. Lymph nodes: No evidence of adenopathy. Bones/joints: No evidence of acute fracture or aggressive osseous lesion. Soft tissues: No evidence of fluid collection or hematoma in the superficial soft tissues. CT/CT chest abd w con*[id number] IMPRESSION: 1. Single enlarged right paratracheal node. Consider correlation with PET-CT as clinically warranted. Otherwise no evidence of metastatic disease in the chest. 2. Subsegmental atelectasis and scarring/postradiation change of the right upper lobe. IMPRESSION: 1. No evidence of metastatic disease in the abdomen.
[2023-08-17] MEDS: iohexol 350 mg/mL 500 mL Btl (per mL) IV (12:44)
== END 2023-08-17 12:06 | disposition home or self-care (01) ==
LOC: RAD 12:07
PROVIDERS: PCP Nurse Practitioner; Visit Provider Nurse Practitioner
DX: C50.811 Malignant neoplasm of overlapping sites of right female breast (principal); I10 Essential (primary) hypertension
CPT/HCPCS: 71260; 74160; Q9967

== ENCOUNTER 2023-09-26 11:12 | Outpatient (CLI) | payer MEDICARE, SELFPAY ==
--- NOTE | 2023-09-26 12:00 | PETR_ITS ---
PROCEDURE INFORMATION: Exam: PET/CT Skull Base to Mid-thigh Exam date and time: 09/26/2023 11:44 AM Age: 83 years old Clinical indication: Abnormal findings; Single enlarged right paratracheal node. Consider correlation with pet-ct as clinically warranted. Otherwise no evidence of metastatic disease in the chest; Prior surgery; Surgery date: 6+ months; Surgery type: RT mastectomy; Patient HX: HX of breast cancer; Additional info: R91.8 - other nonspecific abnormal finding of lung field LABS AND CLINICAL REPORTS: Glucose: 95 mg/dl Treatment strategy for malignancy (PET staging): Initial Staging (PI) TECHNIQUE: Imaging protocol: Following at least four-hour fasting and following the injection of radiopharmaceutical, low dose CT images were obtained. Then, PET images were obtained. Attenuation corrected images were constructed using the CT scan. Fused images of PET and CT were reviewed. The standardized uptake values (SUV) reported below are maximum values within a region of interest, expressed in gm/ml. Exam includes orbital meatal line to mid-thigh. Radiopharmaceutical: 12.59 mCi F-18 FDG (Fluorodeoxyglucose), IV. Time of imaging post radiopharmaceutical administration: 1 hour Injection site: Left antecubital COMPARISON: CT chest abd w con*[id number] 08/17/2023 12:38 PM FINDINGS: Brain: Visualized brain has normal physiologic uptake. Pharynx: Mild, symmetric appearing uptake in the bilateral palatine tonsils is noted without correlating lesions on the CT images, likely physiologic or inflammatory. Larynx: There is physiologic appearing uptake in the region of the larynx. Lungs, pleura and trachea: Mild streaky linear density in the right upper lobe appears similar extending to the pleural surface without elevated uptake suggestive of scarring. Similar non radiotracer avid right apical pleural scarring. Heart: Normal physiologic uptake. Mild cardiomegaly. Mediastinal space: No abnormal uptake. Liver: No abnormal uptake. Gallbladder and bile ducts: No abnormal uptake. Pancreas: No abnormal uptake. Spleen: No abnormal uptake. Calcified granulomas in the spleen are present. Adrenal glands: No abnormal uptake. Kidneys and ureters: Normal physiologic uptake. Similar bilateral renal parapelvic cysts. Stomach and bowel: There are scattered colonic diverticula. Elevated activity in the region of the right colon is noted slightly proximal to the ileocecal valve where there is possible circumferential wall thickening on series 3, image 149, SUV max 5.6. Assessment of this region is limited by incomplete distension of the bowel in this location. No definite mass or wall thickening was noted in this region on the comparison CT. Vasculature: No abnormal uptake. There are diffuse atherosclerotic changes. Lymph nodes: A precarinal lymph node measures 2.9 x 1.3 cm on series 3, image 67 and is not radiotracer avid. This corresponds to the previously described right paratracheal lymph node and is unchanged in size allowing for differences in measurement technique between the prior and current examination. Mild uptake in the right hilar region is noted, SUV max 3.1 on PET series 12, image 75. Assessment for the presence of a lymph node in this location is limited by lack of intravenous contrast. No lymphadenopathy in this region was noted on the recent CT. Bones/joints: No abnormal uptake in the visualized axial and appendicular skeleton. Degenerative changes in the spine are present. Suture anchors in the bilateral humeral greater tuberosity is are present. Mild, likely inflammatory uptake is noted in the region of the right glenohumeral joint capsule. 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 Soft tissues: There are postoperative changes of right mastectomy without elevated uptake at the operative site. METRICS: Mediastinal blood pool: SUV max 2.0 [facility] INITIAL [id number] IMPRESSION: 1. A prominent mediastinal lymph node is similar in size and not radiotracer avid favoring a benign etiology. 2. Mild uptake in the right hilar region is noted without evidence of a discrete lesion on the current for comparison study, likely physiologic in nature. 3. Postoperative changes of right mastectomy without elevated uptake in the operative bed. 4. Focal elevated uptake in the right colon slightly superior to the ileocecal valve is noted. No discrete lesion in this the region was identified on the CT of 08/17/2023. Possible wall thickening in this region on the current examination may be related to incomplete distension. This may represent physiologic or inflammatory uptake. A malignant etiology is less likely. 5. Colonic diverticulosis. 6. Additional nonurgent findings as detailed above.
== END 2023-09-26 11:13 | disposition home or self-care (01) ==
LOC: RAD 11:13
PROVIDERS: PCP Nurse Practitioner; Visit Provider Nurse Practitioner
DX: R91.8 Other nonspecific abnormal finding of lung field (principal)
CPT/HCPCS: 78815; A9552

== ENCOUNTER → 2023-10-16 11:29 | Outpatient (BNVA) | payer MEDICARE, SELFPAY | PROVIDERS: PCP Nurse Practitioner; Visit Provider Nurse Practitioner | DX: N39.0 Urinary tract infection, site not specified (principal); I50.22 Chronic systolic (congestive) heart failure | CPT/HCPCS: 80048 ==

== ENCOUNTER → 2023-11-16 13:33 | Outpatient (BNVA) | payer MEDICARE, SELFPAY | PROVIDERS: PCP Nurse Practitioner; Visit Provider Internal Medicine | DX: Z86.718 Personal history of other venous thrombosis and embolism (principal); I48.91 Unspecified atrial fibrillation; I11.0 Hypertensive heart disease with heart failure; I50.22 Chronic systolic (congestive) heart failure; R06.09 Other forms of dyspnea; Z79.01 Long term (current) use of anticoagulants; Z79.82 Long term (current) use of aspirin | CPT/HCPCS: 99213 ==

== ENCOUNTER 2023-12-09 13:47 | Emergency (ER) | payer MEDICARE, SELFPAY ==
[2023-12-09 13:48] VITALS: BP 170/108; PULSE 108; RESP 18; TEMP 37.3; O2SAT 91; BMI 28.1
--- NOTE | 2023-12-09 13:50 | CTR_ITS ---
PROCEDURE INFORMATION: Exam: CT Head Without Contrast Exam date and time: 12/09/2023 1:52 PM Age: 83 years old Clinical indication: Stroke-like symptoms; Other: Weakness weakness; Additional info: Symptoms of acute stroke TECHNIQUE: Imaging protocol: Computed tomography of the head without contrast. Radiation optimization: All CT scans at this facility use at least one of these dose optimization techniques: automated exposure control; mA and/or kV adjustment per patient size (includes targeted exams where dose is matched to clinical indication); or iterative reconstruction. Other technique: STROKE PROTOCOL was implemented. COMPARISON: PT PET skull to thigh INIT [id number] 09/26/2023 11:44 AM RADIATION DOSE METRICS: Total DLP (mGy-cm): 861.28 FINDINGS: Brain: There is a new left thalamic intracranial hemorrhage measuring 21 x 18 mm with mild amount of surrounding edema. Moderate central and cortical atrophy and small vessel ischemic changes. No midline shift. No intraventricular blood. No subarachnoid blood. Cerebral ventricles: See Brain finding. Paranasal sinuses: Visualized sinuses are unremarkable. No fluid levels. Mastoid air cells: Visualized mastoid air cells are well aerated. Bones: Unremarkable. No acute fracture. Soft tissues: Unremarkable. CT/CT head thrombolytic [id number] IMPRESSION: Left thalamic intracranial bleed. ASSESSMENT: ASPECTS ([place] Stroke Program Early CT Score) does not apply given the hemorrhage.
--- NOTE | 2023-12-09 13:50 | XRR_ITS ---
PROCEDURE INFORMATION: Exam: XR Chest Exam date and time: 12/09/2023 2:18 PM Age: 83 years old Clinical indication: Other: CVA TECHNIQUE: Imaging protocol: Radiologic exam of the chest. Views: 1 view. COMPARISON: CT chest abd w con*[id number] 08/17/2023 12:38 PM FINDINGS: Lungs: Unremarkable. No consolidation. Pleural spaces: Unremarkable. No pleural effusion. No pneumothorax. Heart/Mediastinum: Unremarkable. No cardiomegaly. Bones/joints: Unremarkable. XR/XR chest 1V portable [id number] IMPRESSION: No acute findings.
--- NOTE | 2023-12-09 13:51 | ED_ITS ---
HPI - Neuro Symptoms/Deficit 2 General: Chief Complaint: Neuro Symptoms/Deficit Stated Complaint: WEAKNESS Time Seen by Provider: 12/09/23 13:49 Source: patient Mode of arrival: ambulatory Limitations: no limitations History of Present Illness: 83-year-old female states that she has n ot felt well the day she has had a headache she is also had slurred speech and right-sided weakness. She is unable to really tell me her last known normal she states this is beginning since this morning. She is on Eliquis denies any worse improving factors. Associated symptoms: Reports headache(s); Deny chest pain, nausea or vomiting Review of Systems 2 Const: Denies: fever(s), chills, body aches or change in appetite Eyes: Denies: eye discomfort ENMT: Denies: throat pain or dental pain Card: Denies: chest pain Resp: Denies: dyspnea GI: Denies: abdominal pain, nausea, vomiting or diarrhea Musc: Denies: neck pain or back pain Skin/Breast: Denies: rash Neuro: Reports: headache(s) and weakness in extremities PFSH ED 2 PFSH: Medical History BMI 28.0-28.9,adult IBS (irritable bowel syndrome) History of breast cancer History of DVT (deep vein thrombosis) Chronic cystitis Atrial fibrillation HTN (hypertension) CHF (congestive heart failure) Recurrent UTI Surgical History History of basal cell carcinoma History of hysteroscopy (10/2021) S/P rotator cuff repair Bilateral S/P knee replacement Bilateral S/P lumpectomy of breast S/P cataract extraction S/P mastectomy (12/2005) Right modified radical mastectomy Family History Father , 62 Cancer CAD (coronary artery disease) Hypertension Mother , 86 CAD (coronary artery disease) Stroke Hypertension Heart disease Sister Cancer Heart disease Brother Heart disease Denies family history of Colon cancer Ovarian cancer Diabetes Hyperlipidemia Breast cancer Bleeding disorder Uterine cancer Thyroid disease Social History Smoking and tobacco/nicotine status: never used tobacco/nicotine Second hand smoke exposure: No Alcohol intake: never Substance/Drug Use: never Adopted: No Caregiver/support person: No Lives independently: Yes Household members: spouse Housing: House Marital status: service: No Current occupational status: retired Do you think of yourself as: Straight/Heterosexual Current gender identity: Female NIH stroke score 2 NIHSS: Level Of Consciousness - 1a: 0 Level Of Consciousness Questions - 1b: Both Correct Level Of Consciousness Commands - 1c: Both Correct Best Gaze - 2: Normal Visual Briceño - 3: No Visual Loss Facial Palsy - 4: N ormal Motor Arm Right - 5: Effort Against [place] Motor Arm Left - 5: No Drift Motor Leg Right - 6: No Movement Motor Leg Left - 6: No Drift L imb Ataxia - 7: Absent Sensory - 8: Mild To Moderate Loss Best Language - 9: Mild/Moderate Aphasia Dysarthia - 10: Mild/Moderate Dysarthia E xtinction And Inattention - 11: 0 Score: Total Score: 9 Physical Exam 2 Const: COMMON NORMALS: patient oriented x3 HENMT: COMMON NORMALS: normocephalic and atraumatic HEAD & SCALP: n ormocephalic and atraumatic Eye: COMMON NORMALS: Equal, round and reactive pupils present and EOMs intact bilaterally PUPIL: Yes Equal, round and reactive pupils present Neck/C-Spine: COMMON NORMALS: full ROM and supple Chest: COMMONS NORMALS: normal inspection of the chest Resp: COMMON NORMALS: normal respiratory effort, No retractions, No use of accessory muscles and clear to auscultation bilaterally AUSCULTATION: clear to auscultation bilaterally Cardio: COMMON NORMALS: regular rate, regular rhythm and No murmurs present (Cardio) RATE: regular rate RHYTHM: regular rhythm GI: COMMON NORMALS: Normal to inspection, nondistended, normoactive bowel sounds present, Soft to palpation, non-tender and no masses PALPATION: Yes Soft to palpation Extremity: COMMON NORMALS: normal to inspection and full ROM Neuro: COMMON NORMALS: patient oriented x3 OTHER: Right-sided weakness noted and slurred speech as well Psych: COMMON NORMALS: mental status grossly normal, Normal thought process present and cooperative THOUGHT PROCESS: Normal thought process present Skin: COMMON NORMALS: no rashes or lesions noted and no wounds GENERAL SKIN EXAM: no rashes or lesions noted Course 2 Vital Signs: Vital signs: Vital Signs Temperature 99.1 F 12/09/23 13:48 Pulse Rate 83 12/09/23 14:09 Respiratory Rate 25 H 12/09/23 14:09 Blood Pressure 138/82 12/09/23 14:09 Pulse Oximetry 92 12/09/23 14:09 Oxygen Delivery Me thod Room Air 12/09/23 14:09 MDM - Neuro Symptoms/Deficit Medical Decision Making Patient presents here with a thalamic hemorrhage patient is on Eliquis did give her Andexxa she is hypertensive started on Cardene drip her high blood pressure is improving I did speak to [facility] will transfer there for higher level of care for neurosurgery. Lab Data I reviewed the patient's lab results. 12/09/23 13:51 12/09/23 13:[address] 12/09/23 13:50 IMPRESSION: Left thalamic intracranial bleed. ASSESSMENT: ASPECTS ([place] Stroke Program Early CT Score) does not apply given the hemorrhage. ADDENDUM: 12/09/23 BAR VILLEGAS received the report at 12/09/2023 2:03 PM DECOMMISSIONING WELL SITE MANAGER and had no questions per the radiology residential support worker. Laboratory Results WBC 6.75 10^3/uL (3.29-11.43) 12/09/23 13:51 RBC 4.43 10^6/uL (3.85-5.65) 12/09/23 13:51 Hgb 13.40 g/dL (11.27-16.99) 12/09/23 13:51 Hct 41.4 % (36-47) 12/09/23 13:51 MCV 93.5 fl (85-98) 12/09/23 13:51 MCH 30.2 pg (27-33) 12/09/23 13:51 MCHC 32.4 g/dL (30-55) 12/09/23 13:51 RDW 13.2 % (12.1-15.1) 12/09/23 13:51 Plt Count 227 10^3/cmm (157-399) 12/09/23 13:51 MPV 9.4 fL (7.4-10.4) 12/09/23 13:51 Neut % (Auto) 52.4 % 12/09/23 13:51 Lymph % (Auto) 31.6 % 12/09/23 13:51 [place] % (Auto) 11.4 % 12/09/23 13:51 Eos % (Auto) 3.6 % 12/09/23 13:51 Baso % (Auto) 0.6 % 12/09/23 13:51 Neut # (Auto) 3.54 10^3/uL (1.8-7.7) 12/09/23 13:51 Lymph # (Auto) 2.1 10^3/uL (0.8-4.8) 12/09/23 13:51 [place] # (Auto) 0.8 10^3/uL (0.2-0.9) 12/09/23 13:51 Eos # (Auto) 0.2 10^3/uL (0.0-0.8) 12/09/23 13:51 Baso # (Auto) 0.0 10^3/uL (0.0-0.1) 12/09/23 13:51 Nucleated RBC % (auto) 0 % 12/09/23 13:51 Nucleated RBCs # 0.0 /100WBC 12/09/23 13:51 Sodium 141 mmol/L (136-145) 12/09/23 13:51 Potassium 4.3 mmol/L (3.5-5.1) 12/09/23 13:51 Chloride 103 mmol/L (98-107) 12/09/23 13:51 Carbon Dioxide 24 mmol/L (22-29) 12/09/23 13:51 Anion Gap 18.3 (5-19) 12/09/23 13:51 BUN 14 mg/dL (8-23) 12/09/23 13:51 Creatinine 0.7 mg/dL (0.5-0.9) 12/09/23 13:51 GFR Calculation Not Reportable 12/09/23 13:51 Glucose 113 mg/dL (65-115) 12/09/23 13:51 Calculated Osmolality 293 mOsm/kg (285-295) 12/09/23 13:51 Calcium 9.6 mg/dL (8.5-10.5) 12/09/23 13:51 Total Bilirubin 0.5 mg/dL (0.15-1.2) 12/09/23 13:51 AST 22 U/L (0-32) 07/06/24 13:51 ALT 16 U/L (0-33) 12/09/23 13:51 Alkaline Phosphatase 119 U/L (35-105) H 12/09/23 13:51 Total Protein 7.6 g/dL (6.6-8.7) 12/09/23 13:51 Albumin 4.2 g/dL (3.5-5.2) 12/09/23 13:51 Globulin 3.4 g/dL (1.3-4.6) 12/09/23 13:51 Ethyl Alcohol < 10 mg/dL (0-10) 12/09/23 13:51 All radiology interpretation(s) finalized by discharge Discharge Plan Discharge Condition: Stable Prescriptions: No Action All Day Allergy (cetirizine) 10 mg capsule 10 mg PO DAILY PRN Azo Cranberry Plus Probiotic 250-30-15 mg tablet 1 tab PO DAILY PRN vitamin B complex [B Complex-Vitamin B12] Tablet 1 tab PO ONCE PRN aspirin 325 mg tablet 325 mg PO DAILY PRN (Reason: pain) meclizine 25 mg tablet 25 mg PO .at bedtime PRN (Reason: motion sickness) dicyclomine 10 mg capsule 10 mg PO BID Qty: 60 2RF Hold Instructions: Need daily regular bowel movement polyethylene glycol 3350 [Miralax] 17 gram/dose powder 17 g PO DAILY Qty: 510 0RF albuterol sulfate 2.5 mg /3 mL (0.083 %) solution for nebulization 2.5 mg inhalation QID PRN (Reason: shortness of breath or wheezing) Qty: 75 0RF (DME) nebulizer accessories Misc See Rx Instructions .Route Qty: 1 0RF Rx Instructions: As directed (DME) compressor, for nebulizer Device See Rx Instructions .Route Qty: 1 0RF Rx Instructions: As directed albuterol sulfate [ProAir HFA] 90 mcg/actuation HFA aerosol inhaler 2 puff INHALATION Q4H PRN (Reason: shortness of breath or wheezing) Qty: 6.7 2RF Eliquis 5 mg tablet 5 mg PO BID Qty: 60 2RF cholecalciferol (vitamin D3) 125 mcg (5,000 unit) capsule 125 mcg PO DAILY Qty: 30 2RF fluticasone propionate [Flonase Allergy Relief] 50 mcg/actuation spray,suspension 2 spray intranasal DAILY Qty: 16 2RF Rx Instructions: administer into each nostril metoprolol succinate 25 mg tablet extended release 24 hr 25 mg PO DAILY Qty: 30 2RF Entresto 49-51 mg tablet 1 tab PO BID Qty: 60 2RF Dimetapp DM Cold-Cough (PE) 1-2.5-5 mg/5 mL solution 5 ml PO Q4H PRN (Reason: allergy symptoms) Qty: 118 0RF hydrocodone-acetaminophen 7.5-325 mg tablet 1 tab PO Q6H PRN (Reason: pain) 30 Days Qty: 120 0RF potassium chloride 10 mEq capsule, extended release 20 meq PO DAILY Qty: 60 2RF Referrals: Susan Naylor, PATIENT SUPPORT PARTNER-C [Primary Care Provider] - Coding Level of Care Code ED Remote Recruiter for Gabrielle Mares
[2023-12-09 13:55] LABS: Basophils % 0.6 %; Eosinophils # 0.2 10^3/uL (0.0-0.8); Eosinophils % 3.6 %; Hematocrit 41.4 % (36-47); Lymphocytes # 2.1 10^3/uL (0.8-4.8); Lymphocytes % 31.6 %; Mean Corpuscular HGB Conc 32.4 g/dL (30-55); Mean Corpuscular Hemoglobin 30.2 pg (27-33); Mean Corpuscular Volume 93.5 fl (85-98); Mean Platelet Volume 9.4 fL (7.4-10.4); Monocytes # 0.8 10^3/uL (0.2-0.9); Monocytes % 11.4 %; Neutrophils # 3.54 10^3/uL (1.8-7.7); Neutrophils % 52.4 %; Nucleated Red Blood Cells % 0 %; Platelet Count 227 10^3/cmm (157-399); Red Blood Count 4.43 10^6/uL (3.85-5.65); Red Cell Distribution Width 13.2 % (12.1-15.1); White Blood Count 6.75 10^3/uL (3.29-11.43)
--- NOTE | 2023-12-09 14:02 | ECG_ITS ---
[facility] Test Date: 2023-12-09 Pat Name: Corrine Johnson Department: Room: Gender: Female [employer] Worker: : 1940 Requested By: Tasha Garland Order Number: [id number] Tony MD: Jason Treviño M.D. Measurements Intervals Friend Rate: 75 P: 65 MT: 193 QRS: -19 QRSD: 106 T: 32 QT: 371 QTc: 416 Interpretive Statements SINUS RHYTHM Compared to ECG 09/23/2017 17:30:13 Left-axis deviation no longer present Left ventricular hypertrophy no longer present ST (T wave) deviation no longer present Myocardial infarct finding no longer present Electronically Signed On 12-10-2023 19:21:38 CDT by Jason Treviño M.D. [id number]
[2023-12-09] MEDS: labetalol 5 mg/mL SDV 20mL 10 MG IVP (14:05)
[2023-12-09 14:09] VITALS: BP 138/82; PULSE 83; RESP 25; O2SAT 92
[2023-12-09 14:11] LABS: Alanine Aminotransferase 16 U/L (0-33); Albumin Level 4.2 g/dL (3.5-5.2); Alkaline Phosphatase 119 U/L (35-105); Anion Gap 18.3 (5-19); Aspartate Amino Transferase 22 U/L (0-32); Blood Urea Nitrogen 14 mg/dL (8-23); Calcium 9.6 mg/dL (8.5-10.5); Carbon Dioxide 24 mmol/L (22-29); Chloride 103 mmol/L (98-107); Creatinine Clr Calc Pharmacy 56.4734; Globulin 3.4 g/dL (1.3-4.6); Glucose 113 mg/dL (65-115); Osmolality Calculated 293 mOsm/kg (285-295); Potassium 4.3 mmol/L (3.5-5.1); Sodium 141 mmol/L (136-145); Total Bilirubin 0.5 mg/dL (0.15-1.2); Total Protein 7.6 g/dL (6.6-8.7)
[2023-12-09 14:13] LABS: Alcohol Level < 10 mg/dL (0-10)
[2023-12-09] MEDS: nicardipine 20 MG/200 ML PREMIX 50 MG IV (14:17)
[2023-12-09 14:30] VITALS: BP 123/79; BP 136/79
[2023-12-09] MEDS: factor xa, inactivated-zhzo 800 MG in empty flexible container 1 EACH, non-DEHP filter ... 180 MG IV (14:30)
--- NOTE | 2023-12-09 14:33 | PC.NURSE ---
report given to Luciano Kessler RN with [facility] @[phone]
--- NOTE | 2023-12-09 14:46 | PC.NURSE ---
report given to Vale Alvarado @[phone], pt left facility via [facility] @4302
[2023-12-09 14:51] VITALS: BP 136/79; PULSE 77; RESP 18; O2SAT 99
--- NOTE | 2023-12-09 14:52 | PC.NURSE ---
Medications sent with [facility]: Andexxa 800mg infusing @180mL/hr Nicardipine 20mg in 200mL currently paused, send with [facility] per Dr. Garland d/t needing to maintain systolic b/p goal of 130s
--- NOTE | 2023-12-09 14:54 | PC.NURSE ---
pt unable to sign transfer form d/t being R handed and experiencing R sided deficits. x2 nurse signature
[2023-12-09 15:15] LABS: INR 1.32 (0.8-1.2); Partial Thromboplastin Time 37.3 SECONDS (23.9-36.7)
--- NOTE | 2023-12-18 18:05 | ED_ITS ---
HPI - Neuro Symptoms/Deficit 2 General: Chief Complaint: Neuro Symptoms/Deficit Stated Complaint: WEAKNESS Time Seen by Provider: 12/09/23 13:49 Source: patient Mode of arrival: ambulatory Limitations: no limitations History of Present Illness: . [facility] ED 2 PFSH: Medical History BMI 28.0-28.9,adult IBS (irritable bowel syndrome) History of breast cancer History of DVT (deep vein thrombosis) Chronic cystitis Atrial fibrillation HTN (hypertension) CHF (congestive heart failure) Recurrent UTI Surgical History History of basal cell carcinoma History of hysteroscopy (10/2021) S/P rotator cuff repair Bilateral S/P knee replacement Bilateral S/P lumpectomy of breast S/P cataract extraction S/P mastectomy (12/2005) Right modified radical mastectomy Family History Father , 62 Cancer CAD (coronary artery disease) Hypertension Mother , 86 CAD (coronary artery disease) Stroke Hypertension Heart disease Sister Cancer Heart disease Brother Heart disease Denies family history of Colon cancer Ovarian cancer Diabetes Hyperlipidemia Breast cancer Bleeding disorder Uterine cancer Thyroid disease Social History Smoking and tobacco/nicotine status: never used tobacco/nicotine Second hand smoke exposure: No Alcohol intake: never Substance/Drug Use: never Adopted: No Caregiver/support person: No Lives independently: Yes Household members: spouse Housing: House Marital status: service: No Current occupational status: retired Do you think of yourself as: Straight/Heterosexual Current gender identity: Female Course 2 Vital Signs: Vital signs: Vital Signs Temperature 99.1 F 12/09/23 13:48 Pulse Rate 77 12/09/23 14:51 Respiratory Rate 18 12/09/23 14:51 Blood Pressure 136/79 12/09/23 14:51 Pulse Oximetry 99 12/09/23 14:51 Oxygen Delivery Me thod Room Air 12/09/23 14:09 MDM - Neuro Symptoms/Deficit Medical Decision Making Addendum to note including critical care time in diagnosis the patient is seen on 12 08 Lab Data 12/09/23 13:51 12/09/23 13:51 Radiology Impressions Chest X-Ray 12/09/23 13:50 IMPRESSION: No acute findings. Head CT 12/09/23 13:50 IMPRESSION: Left thalamic intracranial bleed. ASSESSMENT: ASPECTS ([place] Stroke Program Early CT Score) does not apply given the hemorrhage. ADDENDUM: 12/09/23 1406 BAR PINA received the report at 12/09/2023 2:03 PM TRAVEL REGISTERED NURSE PACU and had no questions per the radiology system support analyst. Laboratory Results WBC 6.75 10^3/uL (3.29-11.43) 12/09/23 13:51 RBC 4.43 10^6/uL (3.85-5.65) 12/09/23 13:51 Hgb 13.40 g/dL (11.27-16.99) 12/09/23 13:51 Hct 41.4 % (36-47) 12/09/23 13:51 MCV 93.5 fl (85-98) 12/09/23 13:51 MCH 30.2 pg (27-33) 12/09/23 13:51 MCHC 32.4 g/dL (30-55) 12/09/23 13:51 RDW 13.2 % (12.1-15.1) 12/09/23 13:51 Plt Count 227 10^3/cmm (157-399) 12/09/23 13:51 MPV 9.4 fL (7.4-10.4) 12/09/23 13:51 Neut % (Auto) 52.4 % 12/09/23 13:51 Lymph % (Auto) 31.6 % 12/09/23 13:51 [place] % (Auto) 11.4 % 12/09/23 13:51 Eos % (Auto) 3.6 % 12/09/23 13:51 Baso % (Auto) 0.6 % 12/09/23 13:51 Neut # (Auto) 3.54 10^3/uL (1.8-7.7) 12/09/23 13:51 Lymph # (Auto) 2.1 10^3/uL (0.8-4.8) 12/09/23 13:51 [place] # (Auto) 0.8 10^3/uL (0.2-0.9) 12/09/23 13:51 Eos # (Auto) 0.2 10^3/uL (0.0-0.8) 12/09/23 13:51 Baso # (Auto) 0.0 10^3/uL (0.0-0.1) 12/09/23 13:51 Nucleated RBC % (auto) 0 % 12/09/23 13:51 Nucleated RBCs # 0.0 /100WBC 12/09/23 13:51 PT 16.80 SECONDS (12.1-14.9) H 12/09/23 13:51 INR 1.32 (0.8-1.2) H 12/09/23 13:51 APTT 37.3 SECONDS (23.9-36.7) H 12/09/23 13:51 Sodium 141 mmol/L (136-145) 12/09/23 13:51 Potassium 4.3 mmol/L (3.5-5.1) 12/09/23 13:51 Chloride 103 mmol/L (98-107) 12/09/23 13:51 Carbon Dioxide 24 mmol/L (22-29) 12/09/23 13:51 Anion Gap 18.3 (5-19) 12/09/23 13:51 BUN 14 mg/dL (8-23) 12/09/23 13:51 Creatinine 0.7 mg/dL (0.5-0.9) 12/09/23 13:51 GFR Calculation Not Reportable 12/09/23 13:51 Glucose 113 mg/dL (65-115) 12/09/23 13:51 Calculated Osmolality 293 mOsm/kg (285-295) 12/09/23 13:51 Calcium 9.6 mg/dL (8.5-10.5) 12/09/23 13:51 Total Bilirubin 0.5 mg/dL (0.15-1.2) 12/09/23 13:51 AST 22 U/L (0-32) 12/09/23 13:51 ALT 16 U/L (0-33) 12/09/23 13:51 Alkaline Phosphatase 119 U/L (35-105) H 12/09/23 13:51 Total Protein 7.6 g/dL (6.6-8.7) 12/09/23 13:51 Albumin 4.2 g/dL (3.5-5.2) 12/09/23 13:51 Globulin 3.4 g/dL (1.3-4.6) 12/09/23 13:51 Ethyl Alcohol < 10 mg/dL (0-10) 12/09/23 13:51 All radiology interpretation(s) finalized by discharge Critical Care Time 2 Critical Care Time: Critical Care Time: Yes Total Critical Care Time: 40 Attestation: The high probability of a clinically significant, sudden or life threatening deterioration of the patient's neuro system(s) required my full and direct attention, intervention and personal management. The critical care time is as shown. This time is in addition to time spent performing any reported procedures but includes the following: [x] Data and vital sign review and interpretation [x] Patient assessment, examination and intervention [x] Documentation [x] Medication orders and management Discharge Plan Discharge Patient Disposition: Xfer Short-Term Hosp Clinical Impression: Thalamic hemorrhage Condition: Stable Referrals: Susan Naylor, OPTION TRADER-C [Primary Care Provider] - Coding Level of Care Code ED Packing Line Operator for Gabrielle Mares
== END 2023-12-09 14:47 | disposition short-term general hospital (02) ==
PROVIDERS: Emergency Provider Emergency Medicine; PCP Nurse Practitioner
DX: I61.9 Nontraumatic intracerebral hemorrhage, unspecified (principal); I11.0 Hypertensive heart disease with heart failure; I50.9 Heart failure, unspecified; Z79.899 Other long term (current) drug therapy; Z79.01 Long term (current) use of anticoagulants; Z79.82 Long term (current) use of aspirin; Z86.718 Personal history of other venous thrombosis and embolism
CPT/HCPCS: 70450; 71045; 80053; 80307; 85025; 85610; 85730; 93005; 96374; 96375; 99285; 99291; J3490; J7169